=== PATIENT | male | born 2000 | race Caucasian/White ===

== ENCOUNTER 2018-06-10 17:17 | Emergency (ER) | payer OTHER ==
--- NOTE | 2018-06-10 21:41 | ED ---
Abdominal Pain/Male - HPI Summary HPI Summary: Pt is a 17 y/o male who presents to the ED c/o abdominal pain. He was sent here from [facility] to rule out appendicitis. Pt c/o diffuse abdominal pain, nausea , and bloating since around 17:00 yesterday evening. The pain radiates some to his right shoulder, but does not radiate to his back. He also states that he was spitting up some bloody mucus. Pt denies any vomiting, diarrhea, decreased appetite, or fever. Pain is rated an 8/10 in severity, and is made worse with eating. He denies any prior abdominal surgeries. Pt is lactose intolerant, but states that abdominal pain is a different sensation. - History of Current Complaint Chief Complaint: EDJose Luisin Stated Complaint: ABD PAIN, SENT FROM PER PT Time Seen by Provider: 06/10/18 21:26 Hx Obtained From: Patient Onset/Duration: Gradual Onset, Lasting Days - 17:00 yesterday, Still Present Timing: Constant Severity Currently: Severe Pain Intensity: 8 Pain Scale Used: 0-10 Numeric Location: Diffuse Radiates: Yes Radiates to: Other - right shoulder Aggravating Factor(s): Food Associated Signs And Symptoms: Positive: Nausea. Negative: Fever, Decreased Appetite, Vomiting - Allergies/Home Medications Allergies/Adverse Reactions: Allergies Allergy/AdvReac Type Severity Reaction Status Date / Time cefadroxil [place] [facility] [place] Allergy Hives Verified 06/10/18 18:10 Home Medications: Home Medications NK [No Home Medications Reported] 06/10/18 [History Confirmed 06/10/18] PMH/Surg Hx/FS Hx/Imm Hx Endocrine/Hematology History: Denies: Hx Diabetes Cardiovascular History: Denies: Hx Hypertension Infectious Disease History: No Infectious Disease History: Denies: Traveled Outside the [place] in Last 30 Days - Family History Known Family History: Positive: Hypertension - Social History Alcohol Use: None Hx Substance Use: No Substance Use Type: Reports: None Hx Tobacco Use: No Smoking Status (MU): Never Smoked Tobacco Review of Systems Negative: Fever, Other - decreased appetite Positive: Other - spitting up bloody mucus Positive: Abdominal Pain, Nausea, Other - bloating. Negative: Vomiting, Diarrhea All Other Systems Reviewed And Are Negative: Yes Physical Exam - Summary Physical Exam Summary: VITAL SIGNS: Reviewed. GENERAL: Patient is a well-developed and nourished MALE who is lying comfortable in the stretcher. Patient is not in any acute respiratory distress. HEAD AND FACE: No signs of trauma. No ecchymosis, hematomas or skull depressions. No sinus tenderness. EYES: PERRLA, EOMI x 2, No injected conjunctiva, no nystagmus. EARS: Hearing grossly intact. Ear canals and tympanic membranes are within normal limits. MOUTH: Oropharynx within normal limits. NECK: Supple, trachea is midline, no adenopathy, no JVD, no carotid bruit, no c- spine tenderness, neck with full ROM. CHEST: Symmetric, no tenderness at palpation LUNGS: Clear to auscultation bilaterally. No wheezing or crackles. CVS: Regular rate and rhythm, S1 and S2 present, no murmurs or gallops appreciated. ABDOMEN: Soft. RUQ and RLQ tenderness. No signs of distention. No rebound no guarding, and no masses palpated. Bowel sounds are normal. EXTREMITIES: FROM in all major joints, no edema, no cyanosis or clubbing. NEURO: Alert and oriented x 3. No acute neurological deficits. Speech is normal and follows commands. SKIN: Dry and warm Triage Information Reviewed: Yes Vital Signs On Initial Exam: Initial Vitals Temp Pulse Resp BP Pulse Ox 98.2 F 89 16 160/109 98 06/10/18 18:06 06/10/18 18:06 06/10/18 18:06 06/10/18 18:06 06/10/18 18:06 Vital Signs Reviewed: Yes Diagnostics - Vital Signs Vital Signs Temp Pulse Resp BP Pulse Ox 06/10/18 19:32 98.5 F 100 16 147/95 99 06/10/18 18:06 98.2 F 89 16 160/109 98 - Laboratory Result Diagrams: 06/10/18 22:33 06/10/18 22:33 Lab Statement: Any lab studies that have been ordered have been reviewed, and results considered in the medical decision making process. - CT CT A/P CT Interpretation Completed By: Radiologist Summary of CT Findings: 1. The appendix is unremarkable. 2. There is a fat filled left inguinoscrotal hernia with hernia sac measuring a maximum of 5.8 cm without signs of incarceration. 3. No other acute CT pathology. ED physician reviewed radiology report. - Ultrasound No standard instances Ultrasound Interpretation Completed By: Radiologist Summary of Ultrasound Findings: Gallbladder US: 1. The pancreas appears slightly heterogeneous but no surrounding fluid collections. 2. No other acute sonographic pathology. ED physician reviewed radiology report. Re-Evaluation - Re-Evaluation First Eval Re-Evaluation Time: 01:00 Change: Improved Comment: Pt feels much better. Abdominal Pain Male Course/Dx - Course Course Of Treatment: Pt is a 17 y/o male who presents to the ED c/o abdominal pain, nausea, and bloating. A physical exam revealed RUQ and RLQ tenderness. A CT A/P revealed The appendix is unremarkable. There is a fat filled left inguinoscrotal hernia with hernia sac measuring a maximum of 5.8 cm without signs of incarceration. No other acute CT pathology. A gallbladder US revealed The pancreas appears slightly heterogeneous but no surrounding fluid collections. No other acute sonographic pathology. Bloodwork without abnormalities. In the course pt was given Reglan, Morphine, and fluids. Pt will be discharged with a final dx of left inguinal hernia. He was instructed to follow up with surgery. Pt is agreeable with this plan. - Diagnoses Provider Diagnoses: Left inguinal hernia Discharge - Sign-Out/Discharge Documenting (check all that apply): Patient Departure - Discharge Patient Received Moderate/Deep Sedation with Procedure: No - Discharge Plan Condition: Improved Disposition: HOME Patient Education Materials: Inguinal Hernia (ED) Referrals: [facility] [Outside] (1-2 days) Gwyn Gary MD [Medical Doctor] - (1-2 days) Additional Instructions: PLEASE RETURN TO THE ED IMMEDIATELY FOR WORSENING OR CONCERNING SYMPTOMS. - Attestation Statements Document Initiated by Scribe: Yes Documenting Scribe: Jenifer Sheldon Provider For Whom Chava is Documenting (Include Credential): Alayna Bennett MD Scribe Attestation: Jenifer Piña scribed for Alayna Bennett MD on 06/11/18 at 0130. Status of Scribe Document: Ready
[2018-06-10] MEDS ORDERED: NS 0.9% 1000 ML** 1,000 ML IV ONE (21:51)
[2018-06-10] MEDS ORDERED: Morphine 4 MG/ML VIAL (1 ml) 4 MG/ML VIAL IV ONE (21:52)
[2018-06-10] MEDS ORDERED: Metoclopramide IV* 5 MG/ML 2 ML VIAL IV SLOW PU ONE (21:52)
[2018-06-10 23:01] LABS: Albumin 4.8 g/dL (3.2-5.2); Albumin/Globulin Ratio 1.4 (1-3); BUN/Creatinine Ratio 12.1 (8-20); C Reactive Protein 20.9 mg/L (<8.01); Calcium 9.7 mg/dL (8.6-10.3); EGFR African American 129.9 (>60); EGFR Non-African American 107.3 (>60); Globulin 3.4 g/dL (2-4); Magnesium 2.2 mg/dL (1.9-2.7); Potassium 3.8 mmol/L (3.5-5.0); Total Bilirubin 0.8 mg/dL (0.2-1.0); Total Protein 8.2 g/dL (6.4-8.9)
[2018-06-10 23:08] LABS: ABS Basophils 0 10^3/ul (0-0.2); ABS Eosinophils 0 10^3/ul (0-0.6); ABS Lymphocytes 2.9 10^3/ul (1.0-4.8); ABS Monocytes 0.4 10^3/ul (0-0.8); ABS Neutrophils 2.7 10^3/ul (1.5-7.7); ABS Nucleated RBC 0 10^3/ul; Eosinophil % 0.6 %; Hematocrit 50 % (36-46); Hemoglobin 17.8 g/dL (14.0-18.0); Lymphocyte % 47.6 %; Mean Corpuscular HGB Conc 36 g/dL (31-36); Mean Corpuscular Hemoglobin 33 pg (27-31); Mean Corpuscular Volume 92 fL (80-94); Mean Platelet Volume 7.9 fL (7.4-10.4); Nucleated Red Blood Cells % 0.2; Platelet Count 202 10^3/uL (150-450); Red Blood Count 5.45 10^6 /uL (4.18-5.48); Red Cell Distribution Width 13 % (10.5-15); White Blood Count 6.1 10^3/uL (3.5-10.8)
[2018-06-11] MEDS ORDERED: Iohexol 300* (CONTRAST) 10 ML SDV IV ONE
[2018-06-11 01:13] VITALS: BP 123/92
== END 2018-06-11 01:12 | disposition home or self-care (01) ==
LOC: ED 17:17
DX: K40.90 Unilateral inguinal hernia, without obstruction or gangrene, not specified as recurrent (principal); Z88.8 Allergy status to other drugs, medicaments and biological substances
CPT/HCPCS: 36415; 74177; 76705; 80053; 82150; 83690; 83735; 85025; 86140; 96361; 96374; 96375; 99283; J2270; J2765; Q9967

== ENCOUNTER → 2018-07-07 11:02 | Day surgery (SDC) | payer OTHER ==
[~2018-07-07 11:02] MED LIST: Acetaminophen TAB* 325 MG ONE; Acetaminophen TAB* 325 MG PO PRN; Buffered Lidocaine 1% SYRIN* 1 ML/SYRINGE INTRADERM ONE; Bupivacaine 0.25% EPI 200,000* 30 ML SDV ONE; Cisatracurium* 2 MG/ML MDV 5 ML ONE; Clindamycin 900 MG IVPREMIX(* 900 MG/50 ML SDV IV ONE; Desmopressin Acetate* 20 MCG in NS 0.9% 50 ML* 50 ML IVPB ONE; Desmopressin Acetate* 4 MCG/ML 10 ML VIAL IVPB ONE; Dexamethasone IV* 4 MG/ML 1 ML (4 MG) ONE; Famotidine IV* 10 MG/ML 2 ML (20 mg) IV ONE; Famotidine IV* 10 MG/ML 2 ML (20 mg) ONE; HYDROmorphone INJ1* 1 MG/ML SYRINGE IV PRN; Ibuprofen TAB* 600 MG ONE; Ibuprofen TAB* 600 MG PO PRN; Lactated Ringers 1000 ML Bag* 1,000 ML IV SCH; Lidocaine 2% PF * 5 ML VIAL ONE; Midazolam* 1 MG/ML 2 ML VIAL (2 MG) ONE; Naloxone* 0.4 MG/ML 1 ML VIAL IV PRN; Ondansetron INJ* 2 MG/ML VIAL ONE; Propofol* 10 MG/ML 20 ML BTL ONE; Succinylcholine* 20 MG/ML 10 ML VIAL ONE; fentaNYL* 50 MCG/ML 2 ML VIAL (100 MCG VIAL) IV PRN; fentaNYL* 50 MCG/ML 2 ML VIAL (100 MCG VIAL) ONE; oxyCODONE TAB* 5 MG TAB ONE; oxyCODONE TAB* 5 MG TAB PO PRN
--- NOTE | 2018-07-07 15:39 | BRIEFOPN ---
Brief Operative Note - Surgery Procedures: PREOP/POSTOP DX: LIH PROC: LAP LIHR WITH MESH SURG: MECENAS ASSIST: NONE ANES: BOBBI/ABDIRASHID EBL: MIN IVF: CRYSTALLOID SPEC: NONE DRAIN: NONE COMPL: NONE COND: STABLE TO RR, EXTUBATED. FINDINGS: LEFT INDIRECT INGUINOSCROTAL HERNIA
[2018-07-07 20:08] VITALS: BP 136/85
--- NOTE | 2018-07-08 23:17 | OP ---
OPERATIVE REPORT: DATE OF OPERATION: 07/07/18 - SDS DATE OF : 89 SURGEON: Dr. Durham. BENDING ROLL OPERATOR: None. ANESTHESIOLOGIST: Dr. Naranjo. ANESTHESIA: General endotracheal. PRE-OP DIAGNOSIS: Left inguinal hernia. POST-OP DIAGNOSIS: Left inguinal hernia. OPERATIVE PROCEDURE: Laparoscopic preperitoneal repair of left inguinal hernia with mesh and peritoneoscopy. ESTIMATED BLOOD LOSS: Minimal. IV FLUIDS: Crystalloid. SPECIMEN: None. DRAINS: None. COMPLICATIONS: None. COUNTS: Instrument, needle and sponge counts were correct. DESCRIPTION OF PROCEDURE: The patient was brought to the operating room and placed on the table supine. Sequential compression devices were placed on both lower extremities. General anesthesia was administered. Luong catheter was placed. He was prepped and draped in the usual sterile fashion. Time-out was performed. Local anesthetic was infiltrated into the skin and soft tissue. A curvilinear infraumbilical incision was created. The anterior rectus fascia was incised transversely to the left of midline. The rectus muscles were retracted laterally and a preperitoneal balloon dissection was positioned to the pubic symphysis. This was insufflated under direct visualization with the laparoscope. The balloon dissector was removed and replaced with a 12 mm blunt port. Carbon dioxide was insufflated into the preperitoneal space to a pressure of 12 mmHg. Under direct visualization, two 5 mm trocars were placed in the lower midline. Dissection proceeded from the midline laterally to the anterior superior iliac spine. A large left inguinal hernia was identified. This was partially reduced, however, due to the fact that it was extending into the scrotum. After dissecting the cord structures free, the sac was twisted upon itself. It was clipped with endoscopic clips and it was divided sharply, leaving the distal end open. The rent in the peritoneum was closed with endoscopic clip placement. The repair was then performed with the Bard 3DMax mesh using the large-size patch, which was positioned across the midline and it covered the direct, indirect and femoral spaces extending out laterally to the anterior superior iliac spine. The space was allowed to desufflate with visualization of the mesh, assuring that was in good position. Due to the presence of intraperitoneal gas, the 12 mm port was repositioned into the peritoneal cavity and peritoneoscopy was performed. Inspection in the groin revealed that there was no exposed mesh and the peritoneum was intact. Subsequently, the gas was released from the peritoneal cavity and port was removed. The wound was closed with 0 Vicryl to approximate the anterior and posterior rectus fascia. The skin incisions were all closed with 4-0 Monocryl. The patient tolerated the procedure well, was extubated uneventfully, and transferred to the recovery room in stable condition. [id number]/CPS #: [id number]
== END | disposition home or self-care (01) ==
LOC: OR 11:02
PROVIDERS: ATTEND Surgery
DX: K40.90 Unilateral inguinal hernia, without obstruction or gangrene, not specified as recurrent (principal); D68.0 Von Willebrand disease
CPT/HCPCS: A9270-GY; C1781; J0330; J1100; J2250; J2405; J2597; J2704; J3010